=== PATIENT | female | born 1955 | race Hispanic/Latino ===

== ENCOUNTER 2023-12-28 11:01 | Inpatient (IN) | payer MEDICARE, OTHER ==
[2023-12-28 11:56] LABS: #Basophils 0.04 10x3/uL (0.0-0.2); %Basophils 0.5 % (0.0-1.0); %Eosinophils 1.5 % (0.0-10.0); %Lymphocytes 37.2 % (21.0-51.0); %Monocytes 5.2 % (0.0-10.0); %Neutrophils 55.5 % (42.0-75.0); Hematocrit 45.8 % (36.0-47.0); Hemoglobin 15.7 g/dL (12.0-16.0); Mean Corpuscular HGB CONC 34.3 g/dL (32.0-36.0); Mean Corpuscular Hemoglobin 30.5 pg (27.0-31.0); Mean Corpuscular Volume 89.1 fL (78.0-98.0); Mean Platelet Volume 10.1 fL (7.4-10.4); Platelet Count 218 10x3/uL (130-400); Red Blood Cell (RBC) Count 5.14 mill/uL (4.20-5.40)
[2023-12-28 12:15] LABS: ALT (SGPT) 27 U/L (8-55); AST (SGOT) 19 U/L (5-34); Albumin 3.9 g/dL (3.4-4.8); Alkaline Phosphatase 110 U/L (40-110); Anion Gap 13 mmol/L (10-20); BUN (Urea Nitrogen) 9 mg/dL (9.8-20.1); Bilirubin, Total 0.4 mg/dL (0.2-1.2); Calc. Creatinine Clearance 0 mL/min (70-130); Calcium 9.5 mg/dL (7.8-10.44); Carbon Dioxide 26 mmol/L (23-31); Chloride 108 mmol/L (98-107); Estimated GFR 92; Globulin 3.3 g/dL (2.4-3.5); Glucose 208 mg/dL (80-115); Potassium 3.8 mmol/L (3.5-5.1); Protein, Total 7.2 g/dL (5.8-8.1); Sodium 143 mmol/L (136-145)
[2023-12-28 12:21] LABS: Troponin I Less than 0.010 ng/mL (< 0.028)
[2023-12-28] MEDS ORDERED: Ondansetron PF 4 MG/2 ML Vial IVP PRN (13:59)
[2023-12-28] MEDS ORDERED: Acetaminophen 325 MG TAB PO PRN (13:59)
[2023-12-28] MEDS ORDERED: Glucagon 1 MG/ML KIT IM PRN (13:59)
[2023-12-28] MEDS ORDERED: Dextrose 50% Abboject 50 ML SYRINGE SLOW IVP PRN (13:59)
[2023-12-28] MEDS ORDERED: Ondansetron ODT 4 MG TAB PO PRN (13:59)
[2023-12-28] MEDS ORDERED: Dextrose 5% in Water 1,000 ML IV PRN (13:59)
[2023-12-28] MEDS ORDERED: Senokot S 8.6-50 MG TAB PO PRN (13:59)
[2023-12-28] MEDS ORDERED: Calcium Carbonate 500 MG ChewTAB PO PRN (13:59)
[2023-12-28] MEDS ORDERED: HumaLOG 300 UNITS/3 ML VIAL SC PRN ×2 (13:59)
[2023-12-28 17:13] LABS: Hemoglobin A1c 8.4 % (4.0-6.0)
[2023-12-28] MEDS: Aspirin 81 mg Enteric Coated Tablet PO SCH (20:24)
[2023-12-28] MEDS: Atorvastatin Calcium 40 MG TAB PO SCH (20:24)
[2023-12-28] MEDS: Famotidine 20 MG TAB PO SCH (20:24)
[2023-12-28 20:27] VITALS: BMI 33.0
[2023-12-29 04:15] LABS: #Basophils 0.05 10x3/uL (0.0-0.2); %Basophils 0.5 % (0.0-1.0); %Eosinophils 2.2 % (0.0-10.0); %Lymphocytes 41.6 % (21.0-51.0); %Monocytes 6.9 % (0.0-10.0); %Neutrophils 48.7 % (42.0-75.0); Hemoglobin 14.5 g/dL (12.0-16.0); Mean Corpuscular HGB CONC 33.7 g/dL (32.0-36.0); Mean Corpuscular Hemoglobin 30.7 pg (27.0-31.0); Mean Corpuscular Volume 91.1 fL (78.0-98.0); Mean Platelet Volume 10.1 fL (7.4-10.4); Platelet Count 192 10x3/uL (130-400); Red Blood Cell (RBC) Count 4.72 mill/uL (4.20-5.40)
[2023-12-29 04:47] LABS: Anion Gap 12 mmol/L (10-20); BUN (Urea Nitrogen) 10 mg/dL (9.8-20.1); Calc. Creatinine Clearance 118 mL/min (70-130); Calcium 8.9 mg/dL (7.8-10.44); Carbon Dioxide 25 mmol/L (23-31); Cardiac Risk 4.7 (Less than 4.5); Chloride 108 mmol/L (98-107); Cholesterol 155 mg/dl (< 200 Desired); Estimated GFR 96; Glucose 168 mg/dL (80-115); HDL Cholesterol 33 mg/dL (>60 Neg Risk); LDL Cholesterol, Calculated 81 mg/dL; Potassium 3.7 mmol/L (3.5-5.1); Sodium 141 mmol/L (136-145); Triglycerides 205 mg/dL (Less than 150)
[2023-12-29] MEDS: Insulin Lispro 100 UNIT/ML 10 ML VIAL SC PRN (06:21)
[2023-12-29] MEDS ORDERED: Insulin Lispro 100 UNIT/ML 10 ML VIAL SC PRN (06:21)
[2023-12-29] MEDS: Aspirin 81 mg Enteric Coated Tablet PO SCH (09:33)
[2023-12-29] MEDS: Enoxaparin 40 MG (0.4 mL) SYRINGE SC SCH (09:34)
[2023-12-29] MEDS: Losartan 25 MG TAB PO SCH (16:15)
[2023-12-29] MEDS: Amlodipine 5 MG TAB PO SCH (20:13)
[2023-12-29] MEDS ORDERED: Amlodipine 10 MG TAB PO SCH (21:00)
[2023-12-30] MEDS: Acetaminophen 650 MG/20.3 ML UDCUP PO PRN (04:32)
[2023-12-30] MEDS: hydrALAZINE 20 MG/ML VIAL SLOW IVP PRN (04:34)
[2023-12-30 08:51] VITALS: BP 143/84; TEMP 97.9
[2023-12-30] MEDS ORDERED: Amlodipine 5 MG TAB PO SCH (09:00)
[2023-12-30] MEDS ORDERED: Losartan 25 MG TAB PO SCH (09:00)
[2023-12-30] MEDS: Losartan 25 MG TAB PO SCH (09:16)
== END 2023-12-30 11:05 | disposition home or self-care (01) | DRG 64 ==
LOC: ERS 11:01 → ERHOLD 13:16 → 2SE 20:12 → OBSVTOIN 12-29 11:27
PROVIDERS: ADMIT Family Medicine; ATTEND Family Medicine
DX: I63.532 Cerebral infarction due to unspecified occlusion or stenosis of left posterior cerebral artery (principal); G93.6 Cerebral edema; I10 Essential (primary) hypertension; E78.5 Hyperlipidemia, unspecified; E11.9 Type 2 diabetes mellitus without complications; E66.9 Obesity, unspecified; Z79.899 Other long term (current) drug therapy; H53.47 Heteronymous bilateral field defects; R29.702 NIHSS score 2; R47.1 Dysarthria and anarthria; Z68.33 Body mass index [BMI] 33.0-33.9, adult; Z79.84 Long term (current) use of oral hypoglycemic drugs; Z85.3 Personal history of malignant neoplasm of breast; Z92.3 Personal history of irradiation; Z90.49 Acquired absence of other specified parts of digestive tract
CPT/HCPCS: 36415; 36416; 70450; 70553; 80048; 80053; 80061; 83036; 84443; 84484; 85025; 93005; 93306; 93880; 96372; G0378; J0360; J1650